=== PATIENT | male | born 1975 | race Caucasian/White ===

== ENCOUNTER 2018-03-16 17:27 | Emergency (ER) | payer BC, MEDICAID ==
[~2018-03-16] VITALS: Ht 188 cm; Wt 136.4 kg
[~2018-03-16 17:27] MED LIST: DIPH25CA83 PO
--- NOTE | 2018-03-16 18:35 | NUR ---
Contacted the [facility] and Pt can stay there. Pt will be provided Taxi to [facility].
--- NOTE | 2018-03-16 18:39 | NUR ---
[employer] contacted to transport Pt to [place].
--- NOTE | 2018-03-16 18:45 | NUR ---
MEAL PROVIDED FOR PATIENT.
[2018-03-16 18:46] VITALS: BP 128/80
[2018-03-17] MEDS ORDERED: CEPH-572 PO (15:50)
== END 2018-03-16 18:47 | disposition home or self-care (01) ==
LOC: ER 17:27
DX: F20.9 Schizophrenia, unspecified (principal); G89.29 Other chronic pain; Z59.0 Homelessness; Z56.0 Unemployment, unspecified
CPT/HCPCS: 99281; 99284

== ENCOUNTER 2018-03-23 02:41 | Emergency (ER) | payer BC, MEDICAID ==
[~2018-03-23] VITALS: Ht 188 cm; Wt 133.0 kg
[~2018-03-23 02:41] MED LIST changes: +CEPH-572 PO
--- NOTE | 2018-03-23 03:28 | NUR ---
pt awaiting er md, up to nurses station reporting "i need something to help me right now...can they given me something". I updated dr. valderrama and he will order ativan. pt is agreeable to taking this
[2018-03-23] MEDS ORDERED: LORazepam 1 MG tablet PO ONE (03:30)
--- NOTE | 2018-03-23 03:38 | NUR ---
soc called for tele psych consult.
[2018-03-23 03:44] LABS: URINE AMPHETAMINE SCREEN NEGATIVE (Neg); URINE BARBITUATE SCREEN NEGATIVE (Neg); URINE BENZODIAZEPINES SCREEN NEGATIVE (Neg); URINE CANNABINOID SCREEN NEGATIVE (Neg); URINE COCAINE SCREEN NEGATIVE (Neg); URINE METHADONE SCREEN NEGATIVE (Neg); URINE OPIATE SCREEN NEGATIVE (Neg); URINE PHENCYCLIDINE SCREEN NEGATIVE (Neg)
--- NOTE | 2018-03-23 04:29 | NUR ---
Report given to Tele Psych . she is talking with Pt now. Pt is interacting with her.
[2018-03-23] MEDS ORDERED: NO HOME MEDS (04:43)
--- NOTE | 2018-03-23 04:47 | NUR ---
Sack lunch and milk provided to patient
[2018-03-23 04:57] LABS: BASOPHILS % (AUTO) 0.2 % (0-1); EOSINOPHILS # (AUTO) 0.2 X10'3 (0-0.9); EOSINOPHILS % (AUTO) 1.7 % (0-6); HEMATOCRIT 45.6 % (42.0-52.0); HEMOGLOBIN 15.8 g/dl (14.0-17.9); LYMPHOCYTES # (AUTO) 1.1 X10'3 (1.1-4.8); LYMPHOCYTES % (AUTO) 9.4 % (21-51); MEAN CORPUSCULAR HEMOGLOBIN 30.3 PG (27.0-31.0); MEAN CORPUSCULAR HGB CONC 34.5 g/dL (33.0-36.5); MEAN CORPUSCULAR VOLUME 87.7 FL (78-98); MEAN PLATELET VOLUME 7.6 FL (7.4-10.4); MONOCYTES # (AUTO) 0.3 X10'3 (0-0.9); MONOCYTES % (AUTO) 2.4 % (2-12); NEUTROPHILS # (AUTO) 10.5 X10'3 (1.8-7.7); NEUTROPHILS % (AUTO) 86.3 % (42-75); PLATELET COUNT 274 X10'3 (140-440); RED CELL DISTRIBUTION WIDTH 13.1 % (11.5-14.5); WHITE BLOOD COUNT 12.1 X10'3 (4.5-11.0)
[2018-03-23 05:00] LABS: ALANINE AMINOTRANSFERASE 64 U/L (12-78); ALBUMIN 3.6 G/DL (3.4-5.0); ALBUMIN/GLOBULIN RATIO 1.1 (1.1-1.5); ALKALINE PHOSPHATASE 64 IU/L (46-116); ANION GAP 8 (8-16); ASPARTATE AMINO TRANSFERASE 43 U/L (10-37); BILIRUBIN,TOTAL 0.5 MG/DL (0.1-1.0); BLOOD UREA NITROGEN 7 MG/DL (7-18); BUN/CREATININE RATIO 6.9 (5.4-32.0); CALCIUM 8.9 MG/DL (8.5-10.1); CHLORIDE 105 MMOL/L (99-107); CREATININE 1.02 MG/DL (0.60-1.10); ETHANOL < 0.010 GM/DL (0.0-0.010); GLUCOSE 115 MG/DL (70-104); POTASSIUM 3.4 MMOL/L (3.5-5.1); SODIUM 140 MMOL/L (135-145); TOTAL CARBON DIOXIDE 27.1 MMOL/L (24-32); TOTAL PROTEIN 6.8 G/DL (6.4-8.2); eGFR 79 ML/MIN
[2018-03-23] MEDS ORDERED: haloperidol 5mg tablet PO ONE (05:00)
[2018-03-23] MEDS ORDERED: haloperidol 10mg/5ml UD oral solution PO ONE (05:05)
--- NOTE | 2018-03-23 05:33 | NUR ---
per MD Wheeler and telepsych recommendation, pt can be d\c'd after psychotherapist social worker and case management assess/assist patient.
[2018-03-23 06:21] LABS: PLATELET ESTIMATE NORMAL; TOTAL CELLS COUNTED 100
[2018-03-23 08:02] VITALS: BP 155/100
--- NOTE | 2018-03-23 08:09 | NUR ---
spoke with aden from case management. stated will contact executive secretary social welfare and see what available resources we can provide to pt. pt given breakfast, no distress noted. VSS
--- NOTE | 2018-03-23 09:07 | NUR ---
CM called stated will come down to speak to pt. Dr. siu and charge nurse aware.
--- NOTE | 2018-03-23 10:02 | NUR ---
[employer] will be here shortly.
--- NOTE | 2018-03-23 17:04 | NUR ---
SS responded to ED page for SS support w/re to pt's needs for linkages to MH services and social support. Met with pt, provided a brief MSE: pt alert & oriented to person, place, time & situation. Thoughts Process-linear & coherent, pt did have some difficulties with tasks requiring prioritizing, Thought Contents-absent of SI/HI/delusions, pt acknowledge some AH telling him not to see certain people like the psychiatrist. Insight-pt demonstrate awareness of his mental health/illness symptoms and what he needs to treat them; judgement-guarded/caution as pt has history of following commanding AH telling him not see doctors. Mood-anxious, Affect-mood congruent. SS utilized [place] [facility] to support pt in identifying a goal to work towards-pt reports that he would like to repair his relationship w/his mother- mother kicked pt out of the family's home this past October as pt failed to comply with psychiatric/MH providers' treatment recommendations. Once pt was able to verbalize a goal, SS provided support for pt to identify 3 tasks that will get him closer to the goal. Per session: Pt was able to verbalize that if he can stabilize his MH for a month, his mother would be more willing to help him out. SS then provided information re [facility] outpatient services, pt reports that transportation would be a problem, SS informed pt that ED staff will get him a cab from here to [facility] and he can ask [facility] for a bus pass to get to the [place]. Pt agreeable to this. SS contacted [facility] via phone to let them know that pt is being referred there.
== END 2018-03-23 10:08 | disposition home or self-care (01) ==
LOC: ER 02:42
DX: F22 Delusional disorders (principal); F32.9 Major depressive disorder, single episode, unspecified; F20.9 Schizophrenia, unspecified; G89.29 Other chronic pain; Z60.2 Problems related to living alone; Z56.0 Unemployment, unspecified; Z59.0 Homelessness
CPT/HCPCS: 36415; 80053; 80305; 80320; 85025; 99284

== ENCOUNTER 2018-04-06 14:37 | Emergency (ER) | payer BC, MEDICAID ==
[~2018-04-06] VITALS: Ht 188 cm; Wt 125.0 kg
[~2018-04-06 14:37] MED LIST changes: -CEPH-572 PO; -DIPH25CA83 PO; +NO HOME MEDS
[2018-04-06 16:00] VITALS: BP 134/95
--- NOTE | 2018-04-06 17:04 | NUR ---
HOMELESS X 5 MONTHS. HX SCHIZOPHRENIA WITHOUT MEDS FOR 5-6 YEARS. HEARING VOICES AND HAVING DELUSIONS. ARRESTED LAST WEEK. INSOMNIA. WANTS HELP AND TO GET BACK ON MEDS.
--- NOTE | 2018-04-06 17:40 | NUR ---
TC TO [facility] FOR TELEPSYCH CONSULT. VIDEO CAMERA #2 SET UP IN ROOM.
--- NOTE | 2018-04-06 18:00 | NUR ---
TC FROM DR. HERR FROM [facility]. CONDITION REPORT WITH HX GIVEN. STATES HE WILL BE CALLING IN TO CONSULT WITH PATIENT SHORTLY.
[2018-04-06 18:07] LABS: BASOPHILS % (AUTO) 0.6 % (0-1); EOSINOPHILS % (AUTO) 0.6 % (0-6); HEMATOCRIT 47.4 % (42.0-52.0); HEMOGLOBIN 15.4 g/dl (14.0-17.9); LYMPHOCYTES # (AUTO) 1.7 X10'3 (1.1-4.8); LYMPHOCYTES % (AUTO) 21.6 % (21-51); MEAN CORPUSCULAR HEMOGLOBIN 29.2 PG (27.0-31.0); MEAN CORPUSCULAR HGB CONC 32.5 g/dL (33.0-36.5); MEAN CORPUSCULAR VOLUME 89.8 FL (78-98); MEAN PLATELET VOLUME 7.5 FL (7.4-10.4); MONOCYTES # (AUTO) 0.5 X10'3 (0-0.9); MONOCYTES % (AUTO) 6.5 % (2-12); NEUTROPHILS # (AUTO) 5.8 X10'3 (1.8-7.7); NEUTROPHILS % (AUTO) 70.7 % (42-75); PLATELET COUNT 306 X10'3 (140-440); RED BLOOD COUNT 5.28 X10'6 (4.70-6.10); RED CELL DISTRIBUTION WIDTH 12.9 % (11.5-14.5)
[2018-04-06 18:19] LABS: ALANINE AMINOTRANSFERASE 40 U/L (12-78); ALBUMIN 3.6 G/DL (3.4-5.0); ALBUMIN/GLOBULIN RATIO 0.9 (1.1-1.5); ALKALINE PHOSPHATASE 65 IU/L (46-116); ANION GAP 10 (8-16); ASPARTATE AMINO TRANSFERASE 24 U/L (10-37); BILIRUBIN,TOTAL 0.2 MG/DL (0.1-1.0); BLOOD UREA NITROGEN 13 MG/DL (7-18); BUN/CREATININE RATIO 12.5 (5.4-32.0); CALCIUM 9.1 MG/DL (8.5-10.1); CHLORIDE 103 MMOL/L (99-107); CREATININE 1.04 MG/DL (0.60-1.10); ETHANOL < 0.010 GM/DL (0.0-0.010); GLUCOSE 101 MG/DL (70-104); SODIUM 138 MMOL/L (135-145); TOTAL CARBON DIOXIDE 24.8 MMOL/L (24-32); TOTAL PROTEIN 7.4 G/DL (6.4-8.2); eGFR 77 ML/MIN
[2018-04-06 18:21] LABS: URINE AMPHETAMINE SCREEN NEGATIVE (Neg); URINE BARBITUATE SCREEN NEGATIVE (Neg); URINE BENZODIAZEPINES SCREEN NEGATIVE (Neg); URINE CANNABINOID SCREEN NEGATIVE (Neg); URINE COCAINE SCREEN NEGATIVE (Neg); URINE METHADONE SCREEN NEGATIVE (Neg); URINE OPIATE SCREEN NEGATIVE (Neg); URINE PHENCYCLIDINE SCREEN NEGATIVE (Neg)
[2018-04-06] MEDS ORDERED: haloperidol 5mg tablet PO ONE (19:40)
[2018-04-06] MEDS ORDERED: diphenhydrAMINE 25mg capsule PO ONE (19:40)
[2018-04-06] MEDS ORDERED: HALO5TAB PO (19:41)
[2018-04-06] MEDS ORDERED: DIPH25CA83 PO (19:41)
== END 2018-04-06 21:15 | disposition home or self-care (01) ==
LOC: ER 14:37
DX: F20.9 Schizophrenia, unspecified (principal); G89.29 Other chronic pain; Z59.0 Homelessness; Z56.0 Unemployment, unspecified
CPT/HCPCS: 36415; 80053; 80305; 80320; 85025; 99284; Q0163